=== PATIENT | male | born 1955 | race Caucasian/White ===

== ENCOUNTER 2022-11-01 22:16 | Emergency (ER) | payer MEDICARE, SELFPAY ==
[~2022-11-01] VITALS: Ht 177.8 cm; Wt 79.2 kg
[2022-11-01 22:17] VITALS: BP 149/100; TEMP 96.6; O2SAT 98
== END 2022-11-02 01:43 | disposition left against medical advice (07) ==
LOC: M ED 22:16
DX: Z53.21 Procedure and treatment not carried out due to patient leaving prior to being seen by health care provider (principal)

== ENCOUNTER 2024-12-14 12:40 | Emergency (ER) | payer MEDICARE ==
[~2024-12-14] VITALS: Ht 177.8 cm; Wt 74.8 kg
[~2024-12-14 12:40] MED LIST: DIVA250T67; ELIQ5TAB; HYDR-3713; METO1TAB87; QUET200T2
[2024-12-14 12:48] VITALS: TEMP 97
[2024-12-14] MEDS: clonazePAM 0.5 MG TAB PO ONE (13:53)
[2024-12-14 15:01] VITALS: BP 153/80; O2SAT 93
[2024-12-14] MEDS ORDERED: KLON0.5T8 PO (15:17)
== END 2024-12-14 15:50 | disposition home or self-care (01) ==
LOC: M ED 12:40
DX: F41.9 Anxiety disorder, unspecified (principal); I44.0 Atrioventricular block, first degree; I44.4 Left anterior fascicular block; I45.4 Nonspecific intraventricular block; F31.9 Bipolar disorder, unspecified; F17.200 Nicotine dependence, unspecified, uncomplicated; Z79.1 Long term (current) use of non-steroidal anti-inflammatories (NSAID); Z79.01 Long term (current) use of anticoagulants; Z79.899 Other long term (current) drug therapy

== ENCOUNTER 2024-12-19 20:27 | Emergency (ER) | payer MEDICARE ==
[~2024-12-19 20:27] MED LIST changes: +KLON0.5T8 PO
[2024-12-19] MEDS: clonazePAM 0.5 MG TAB PO ONE (21:58)
[2024-12-19 22:03] LABS: BASO # 0.1 10^3/uL (0.0-0.2); BASO % 0.6 % (0.0-1.0); EOS # 0.3 10^3/uL (0.0-0.5); EOS % 2.8 % (0.0-3.0); LYMPH # 3.2 10^3/uL (1.5-5.0); LYMPH % 31.0 % (24.0-44.0); MONO # 0.7 10^3/uL (0.0-0.8); MONO % 7.1 % (2.0-8.0); NEUTROPHILS # 6.0 10^3/uL (1.5-8.5); NEUTROPHILS % 58.3 % (36.0-66.0); PLATELET COUNT, AUTOMATED 321 10^3/uL (150-450)
[2024-12-19 22:41] LABS: ETHYL ALCOHOL (ETHANOL) < 0.003 % (0.000-0.010); VALPROIC ACID (DEPAKOTE) < 3.0 UG/ML (50.0-100.0)
[2024-12-19 22:43] LABS: ALT/SGPT 25 U/L (7.0-40); AST/SGOT 22 U/L (<34); CALCIUM LEVEL 8.9 MG/DL (8.3-10.6); CARBON DIOXIDE LEVEL 24 MMOL/L (20-31); CHLORIDE LEVEL 106 MMOL/L (98-107); CK-MB VALUE MASS 1.4 NG/ML (<3.6); CPK CREATINE PHOSPHOKINASE 66 U/L (46-171); CREATININE FOR GFR 0.93 MG/DL (0.70-1.30); GLOMERULAR FILTRATION RATE 90.0 (>49); MB/CK RELATIVE INDEX 2.12 (< OR =4); POTASSIUM SERUM 3.8 MMOL/L (3.5-5.1); SODIUM LEVEL 140 MMOL/L (136-145)
[2024-12-19 23:25] LABS: CK-MB VALUE MASS 1.4 NG/ML (<3.6)
[2024-12-19 23:32] LABS: CPK CREATINE PHOSPHOKINASE 66.0 U/L (46-171); MB/CK RELATIVE INDEX 2.12 (< OR =4)
[2024-12-20 11:12] VITALS: BP 143/84; TEMP 98.2; O2SAT 97
[2024-12-20] MEDS: clonazePAM 0.5 MG TAB PO ONE (11:39)
== END 2024-12-20 11:45 | disposition home or self-care (01) ==
LOC: M ED 20:27
DX: F41.1 Generalized anxiety disorder (principal); E78.5 Hyperlipidemia, unspecified; F31.9 Bipolar disorder, unspecified; F17.200 Nicotine dependence, unspecified, uncomplicated; Z86.73 Personal history of transient ischemic attack (TIA), and cerebral infarction without residual deficits; Z86.79 Personal history of other diseases of the circulatory system; Z79.1 Long term (current) use of non-steroidal anti-inflammatories (NSAID); Z79.01 Long term (current) use of anticoagulants; Z79.899 Other long term (current) drug therapy